=== PATIENT | male | born 1990 | race Caucasian/White ===

== ENCOUNTER → 2017-05-30 | Outpatient (CLI) | payer SELFPAY ==
[~2017-05-30] MED LIST: ASP81TEC; CEPH500C PO; SIME125C; TRAM50TA2 PO; TRM50T PO
--- NOTE | 2017-05-30 13:11 | Diagnostic Imaging Report ---
INDICATION: Testicular pain and painful lump of the left testicle. FINDINGS: The right testicle measures 3.3 x 3.0 x 3.5 cm and the left testicle measures 4.3 x 2.3 x 3.1 cm. Both testes demonstrate homogeneous echotexture. No discrete testicular mass is seen. There is blood flow to both testes. The right epididymis is unremarkable. There is some enlargement to the inferior left epididymis in the region of the tail. This does correspond to the patient's lump. There is some increased vascularity at this location and findings are likely owing to focal epididymitis. No hydrocele or varicocele is identified. IMPRESSION: 1. No evidence of testicular mass or vascular compromise. 2. The focal lump in the left scrotum corresponds to some mild enlargement of the left epididymal tail with increased vascularity, likely owing to focal epididymitis. Dictated by: Dictated on workstation # [id number]
== END ==
LOC: RAD 12:00
PROVIDERS: ATTEND Nurse Practitioner Family
DX: N50.89 Other specified disorders of the male genital organs (principal)
CPT/HCPCS: 76870